=== PATIENT | male | born 1985 | race Caucasian/White ===

== ENCOUNTER 2020-01-11 12:27 | Emergency (ER) | payer SELFPAY ==
[2020-01-11 12:35] VITALS: BP 114/71; PULSE 91; RESP 16; TEMP 36.8; O2SAT 99
--- NOTE | 2020-01-11 12:57 | ED.ALLEREA ---
HPI - Allergic Reaction General Stated complaint: poison oak or iman Source: patient Mode of arrival: ambulatory Limitations: no limitations History of Present Illness HPI narrative: This is a 34-year-old male presents with some a rash with itching located on his arms and and diffusely with a little patch on his lip and around his eyes after he was working outdoors and came in contact with some plants that appear to be poison iman/ poison oak, has this episode in the past currently no shortness of breath no audible wheezing no fever or chills no blurry vision no nausea vomiting or abdominal pain. MD complaint: allergic reaction and hives Onset (ago): day(s) Exposure: plant Symptoms: rash, itching and lip swelling Severity: moderate Treatment prior to arrival: topical medicine Previous Allergic Reaction History: eczema Related Data Allergies Allergy/AdvReac Type Severity Reaction Status Date / Time No Known Allergies Allergy Unverified 01/14/14 17:12 Review of Systems Review of Systems: All systems reviewed & are unremarkable except as noted in HPI and below PMFSH Past Medical History Medical History Patient denies medical problems Exam Const: General: no acute distress and alert Orientation/consciousness: patient oriented x3 HENMT: Head: normal to inspection Eyes: Conjunctivae: conjunctivae normal Pupils: Equal, round and reactive pupils present EOM: EOMs intact bilaterally Neck: Neck: normal visual inspection, no lymphadenopathy and no meningeal signs Chest: Chest palpation & inspection: normal inspection of the chest Resp: Effort & Inspection: normal respiratory effort Auscultation: clear to auscultation bilaterally Cardio: Rate: regular rate Rhythm: regular rhythm GI: GI Palp: Yes Soft to palpation Skin: General skin exam: normal color Rashes: no rashes ( a rash located diffusely mainly on arms) Neuro: General: patient oriented x3 Extrem: General: normal to inspection Psych: Affect: normal affect Course Course Emergency Course: patient was some started on Depo-Medrol IM and IM Benadryl with moderate relief. Critical Care Time Critical Care Time Critical Care Time: No Discharge Plan Discharge Clinical Impression: Contact dermatitis and eczema due to plant Patient Disposition: Home, Self-Care Condition: Stable Instructions: Antibiotic Form, Contact Dermatitis (ED), Poison Iman (ED) Additional Instructions: take medicine as prescribed and follow-up with primary care physician if symptoms persist or worsen. Prescriptions: New prednisone 20 mg tablet 20 mg PO DAILY Qty: 7 RF: 0 diphenhydramine HCl [Benadryl] 25 mg capsule 25 mg PO QID PRN (Reason: allergic reaction) Qty: 20 RF: 0 famotidine [Pepcid] 20 mg tablet 20 mg PO DAILY Qty: 7 RF: 0 triamcinolone acetonide 0.1 % cream 1 applic TOPICAL TID 7 Days Qty: 28.4 RF: 0 Follow-up/Referrals: UNKNOWN,DOCTOR [Primary Care Provider] - Time of Disposition: 13:04
[2020-01-11] MEDS: methylPREDNISolone ACETATE 40 MG/ML VIAL 80 MG IM (13:06)
[2020-01-11 13:18] VITALS: RESP 18
== END 2020-01-11 13:18 | disposition home or self-care (01) ==
PROVIDERS: Emergency Provider Emergency Medicine
DX: L25.5 Unspecified contact dermatitis due to plants, except food (principal)
CPT/HCPCS: 96372; 99283; 99284; J1030; J1200

== ENCOUNTER 2025-04-19 08:16 | Emergency (ER) | payer OTHER, SELFPAY ==
--- NOTE | ~2025-04-19 | XR_ITS ---
EXAMINATION: XR ankle RT min 3V, 04/19/2025 8:57 CDT HISTORY: pain swelling medial, twisted at work yesterday, pain since COMPARISON: No comparisons available. Findings: No acute fracture or malalignment. No significant degenerative changes. Soft tissues unremarkable. Impression: No acute fracture or malalignment. Reviewed, dictated and finalized at location A. Impression: No acute fracture or malalignment.
[2025-04-19 08:25] VITALS: BP 130/89; PULSE 89; RESP 16; TEMP 36.5; O2SAT 100
--- NOTE | 2025-04-19 08:41 | ED.LOWEXIN ---
HPI - Extremity Injury (Lower) General Chief Complaint: Extremity Injury, Lower Stated Complaint: R FOOT PAIN/SWELLING Time Seen by Provider: 04/19/25 08:41 Source: patient Mode of arrival: ambulatory Limitations: no limitations History of Present Illness HPI Narrative: 39-year-old male presented for complaint of right inner foot pain and swelling. Onset 5 days. Denies known injury. Patient denies deformity, redness or bruising to the foot. Pt rolled the ankle yesterday but denies it causing injury because it was already painful. Denies numbness, tingling or weakness. Has not taken anything for pain, stating he does not like to take any medicine. 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 Related Data Allergies Allergy/AdvReac Type Severity Reaction Status Date / Time No Known Allergies Allergy Verified 04/19/25 08:25 Review of Systems Review of Systems: CONSTITUTIONAL: Denies body aches, fever, chills CARDIOVASCULAR: Denies chest pain, palpitations, or edema. RESPIRATORY: Denies cough or dyspnea. SKIN: Denies wounds. MUSCULOSKELETAL: reports right foot pain and swelling NEUROLOGIC: Denies numbness, tingling, or weakness. All systems reviewed & are unremarkable except as noted in HPI and below [facility] Past Medical History Medical History (Updated 04/19/25 @ 09:14 by Massiel Miller APRN) Patient denies medical problems Comments At time of signature, I have reviewed and agree with nursing past medical, surgical, social and family history unless otherwise noted. Please see nursing chart for further information. There is no relevant family history pertinent to the presenting complaint Exam Narrative: GENERAL: Well-appearing CHEST: Speaks in full sentences. No respiratory distress. HEART: Regular rate and rhythm. Normal and equal peripheral pulses. EXTREMITIES: Mild swelling to right foot medial aspect, no erythema or bruising. Tender with palpation over the achilles and medial foot. Decreased ROM with flexion, extension at ankle. Foot has normal strength and sensation, No open wounds, skin tenting, or obvious deformity; alignment normal, pulse palpable and equal bilaterally, skin warm, dry, pink. Capillary refill less than 3 seconds. SKIN: Warm, dry, no rash. NEURO: Alert and oriented x3. PSYCH: Normal mood and affect Course Course Emergency Course: Patient is aware of diagnosis, understands and agrees to treatment plan. Anticipatory guidance given. Patient agrees to follow-up as directed and is aware of reasons to seek care at the emergency department. Portions of this record may have been created with voice recognition software Level of Care: Express Care Visit Vital Signs Vital signs: Vital Signs Temperature 97.7 F 04/19/25 08:25 Pulse Rate 89 04/19/25 08:25 Respiratory Rate 16 04/19/25 08:25 Blood Pressure 130/89 04/19/25 08:25 Pulse Oximetry 100 04/19/25 08:25 Temperature 97.7 F 04/19/25 08:25 Pulse Rate 89 04/19/25 08:25 Respiratory Rate 16 04/19/25 08:25 Blood Pressure 130/89 04/19/25 08:25 Pulse Oximetry 100 04/19/25 08:25 Reviewed MDM - Extremity Injury (Lower) MDM Narrative Medical decision making narrative: Discussed physical exam findings and xray. KEREN applied, RX motrin. Advised supportive measures and signs/symptoms to go to the ER. Pt is appropriate for outpt treatment and f/u. Differential Diagnosis Differential diagnosis: Likely ankle sprain and strain, ankle fracture and other (foot sprain, strain, fracture) Imaging Data Radiologist's impression: Patient: Troy Albright : 1985 MR#: [id number] Age: 39 Acct:[id number] Loc: [facility] ADM Date: 04/19/25Attending Dr: EXAMINATION: XR ankle RT min 3V, 04/19/2025 8:57 CDT HISTORY: pain swelling medial, twisted at work yesterday, pain since COMPARISON: No comparisons available. Findings: No acute fracture or malalignment. No significant degenerative changes. Soft tissues unremarkable. Impression: No acute fracture or malalignment. Discharge Plan Discharge Clinical Impression: Acute pain of right foot Patient Disposition: Home Condition: Stable Instructions: Foot Sprain (ED) Additional Instructions: Rest, avoid excessive walking, running jumping etc. 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
== END 2025-04-19 09:25 | disposition home or self-care (01) ==
PROVIDERS: Emergency Provider Nurse Practitioner Family
DX: M79.671 Pain in right foot (principal)
CPT/HCPCS: 73610; 99213; G0463